=== PATIENT | male | born 1965 | race Caucasian/White ===

== ENCOUNTER 2018-06-20 10:09 | Outpatient (RCR) ==
--- NOTE | 2018-06-20 15:50 | RS.OPPTEV2 ---
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 Reports he has longstanding residual effects from cervical spine surgery in 07/2008. Prior Level of Function.....Patient was independent with: ADL's, Self Care, Caregiving, Ambulation/Mobility, Community Integration/Access Functional Limitations: Sleep, Reaching, Pushing, Pulling, Lifting, Carrying, Sitting, Standing, Bending, Squatting, Ambulation, Community Access/Integration Current Subjective/complaints:: pt reports that his LBP is getting worse. Reports that the doctor wanted to try therapy prior to looking at surgery. States that he has constant pain in low back as well as cervical spine. Treatment Side (optional): N/A *Precautions: n/a Medical History Medical History: Hypertension, Arthritis Medical History Comments:: chronic headache, generalized anxiety disorder, PTSD, Surgical History: Cervical Spine, Cholecystectomy Smoking Status: Former smoker Diagnostic Testing/Imaging:: MRI 04/2018: Lumbar spine: moderate spinal canal narrowing due to small central post disc protrusion and deg change. neural foraminal narrowing Mod at L4/L5, mild to moderate narrowing at L4/L5 on the R, annular tear of L4/L5 disc and decreased lumbar curvature. Hx Home Medications: albuteral, cetirizine hcl, cholecalciferol, cyanocobalamin , fish oil, fluticasone, hydrocodone, ibuprofen, pantoprazole, pregabalin, sildenafil, tiotropium, topiramate, venlasine hcl, lisopril, azithromycin, atorvastatin Patient's Goals: decreased pain Pain Assessment - Pain Description Pain Location: lumbar spine Pain Description: Burning, Sharp, Aching Pain Description: pt reports pain radiates into LLE from buttock to foot. Current Pain Intensity: 6 Worst Pain Intensity: 10 Functional Outcome Measure Oswestry LBP: 39 (78%) - G Codes & Severity Modifier G Codes & Modifier: mobility current CL. mobility goal Ck Source of G Code score: oswestry LBP scale Observation - Observation Inspection: pt with significant tightness BLE hamstring/piriformis. pt presents with leg length discrepancy R longer than L LE. Posture: Forward Head, Rounded Shoulders, Decreased Lumbar Lordosis Handedness: Right Gait - Gait Pattern General Gait Pattern Observation: Ataxic Gait Gait Comments: pt demonstrates with slight ataxic gait. Gait is limited due to decreased sensation BLE as well as proprioception BLE. pt amb with increased lat sway as well as flexed posture, de General Range of Motion: BUE WFL's. BLE WFL's. pt with limited cervical ROM due to previous inujury. Muscle Strength: BUE grossly 4/5. RLE grossly 4/5. LLE hip flex 4-/5, knee flex/ext 4-/5, ankle DF 4/5, PF 4-/5 - ROM Lumbar Flexion: Hand reach to Mid-Thighs Sidebending to Left: Reach to Mid-thigh Sidebending to Right: Reach to Mid-thigh Lumbar Spine ROM Limitations: Soft Tissue Tightness, Muscle Weakness, Muscle Tone - Strength Trunk Extension: 4- Good- Trunk Flexion: 3- Fair- Trunk Lateral Flexion: 3- Fair- Comments: pt with significantly limited lumbar ROM due to pain and muscle guarding - Special Tests IRENE Test: Positive Left, Positive Right SLR Test: Positive Left, Positive Right Seated Dural Stretch Test: Positive Left, Positive Right Palpation Palpation Findings: Tenderness, Trigger Point, Muscle Guarding Comments:: pt demonstrates tenderness, muscle guarding in lumbar paraspinals as well as trigger points noted in L lower lumbar/SI area. Sensation - Sensation Right Upper Extremity: Impaired (n/t and burning since cervical surgery) Left Upper Extremity: Impaired (n/t and burning since cervical surgery) Right Lower Extremity: Impaired (n/t RLE) Left Lower Extremity: Impaired (n/t LLE as well as paresthesia and hyperreflexia ) Balance - Sitting Balance Static Sitting Balance: Good Dynamic Sitting Balance: Good - Standing Balance Static Standing Balance: Good Dynamic Standing Balance: Good - Comments Balance Assessment Comments: balance impaired due to decreased proprioception and decreased sensation B feet - Treatment Modality: Electrical Stim Unattended Parameters/Method Applied: IFC x 20 mins at 22 Treatment Area: lumbar spine Patient Position: Sitting - Heat/Cryotherapy Treatment: Hot Pack Comments:: lumbar area Interventions - Exercise/Activities/Manual Therapy Exercises/Activities: pt received gentle hamstring stretching, piriformis stretching, lower trunk rotation stretch, as well as isometric hip add. Manual Therapy: n/a HOME EXERCISE PROGRAM: pt given written HEP including pelvic tilt, lower trunk rotation, knee to chest, hamstring stretch with partner, piriformis stretch, isometric hip add. - Charges Timed Code Treatment Minutes: 48 Total Treatment Time: 62 Procedures billed for this date of service:: eval med, estim unattended, hot pack EVALUATION COMPLEXITY LEVEL EVALUATION COMPLEXITY LEVEL: HISTORY: Medium (HTN, OA, ), EXAM OF BODY SYSTEMS: Medium (decreased strength, pain, ROM, radicular pain), CLINICAL PRESENTATION: Medium (evolving), CLINICAL DECISION MAKING: Medium Assessment Assessment: pt presents with LBP with radicular pain into LLE. pt with decreased sensation as well as hyperreflexia LLE which causes gait abnormality. pt with significant muscle tightness and muscle guarding. Patient Education: Activity Modification, Education of Plan of Care Rehab Potential: Good Short Term Goals Goal #1: pt independent with initial HEP Goal to be met by: 07/11/18 Goal #2: pt report pain 6/10 with activity Goal to be met by: 07/11/18 Goal #3: pt with improved flexibility BLE hamstrings and piriformis Goal to be met by: 07/11/18 Goal #4: Improve BLE strength 4/5 Goal to be met by: 07/11/18 Retirement Goals Goal #1: pt report radicular pain is no longer constant. Goal to be met by: 08/01/18 Goal #2: pt able to perform normal daily activities with less pain Goal to be met by: 08/01/18 Goal #3: hamstring and piriformis muscle flexibility WFL's Goal to be met by: 08/01/18 Goal #4: Leg length discrepancy decreased to equal BLE. Goal to be met by: 08/01/18 Plan - Treatment to be Provided Procedures: Therapeutic Exercises, Therapeutic Activity, Gait Training, Manual Therapy, Massage, Patient Education Modalities: Electrical Stimulation, Ultrasound/Phonophoresis, Class IV Laser, Hot Packs - Treatment Plan Frequency: 2-3x a week Duration: 6 weeks Dates of Retirement Goals: 08/01/18 Expiration date of current Insurance Approval:: 08/01/18 - Treatment Code (1) Lumbar back pain with radiculopathy affecting left lower extremity Code(s): M54.17 - RADICULOPATHY, LUMBOSACRAL REGION (2) Muscle tightness Code(s): M62.89 - OTHER SPECIFIED DISORDERS OF MUSCLE (3) Gait abnormality Code(s): R26.9 - UNSPECIFIED ABNORMALITIES OF GAIT AND MOBILITY (4) Muscle weakness Code(s): M62.81 - MUSCLE WEAKNESS (GENERALIZED)
== END 2018-06-20 23:59 | disposition short-term general hospital (02) ==
PROVIDERS: ATTEND Neurological Surgery
DX: M54.5 Low back pain (principal); M54.16 Radiculopathy, lumbar region

== ENCOUNTER 2018-07-11 13:00 | Outpatient (RCR) ==
--- NOTE | 2018-06-25 16:07 | RS.OPPTDN ---
Subjective Date of Note: 06/25/18 Visit #: 2 Number of visits approved by Insurance: 12 + eval Date of Evaluation: 06/20/18 P[place] Source[place] Treatment Diagnosis: Low back pain with radiculopathy Current Subjective/complaints:: pt reports he has been doing some gentle stretches at home with his 's help. States he feels like it is a little more loose. *Precautions: n/a Pain Assessment - Pain Description Pain Location: lumbar/sacral pain Pain Description: Sharp, Aching Current Pain Intensity: 5/10 Worst Pain Intensity: 7/10 - Treatment Modality: Ultrasound Parameters/Method Applied: 1.5w/cm2 x 7 mins Treatment Area: L lumbosacral area Patient Position: Left Sidelying - Heat/Cryotherapy Treatment: Hot Pack (prior to treatment), Cryotherapy (after treatment) Interventions - Exercise/Activities/Manual Therapy Exercises/Activities: pt received gentle hamstring stretches, knee to chest and piriformis stretching, isometric hip add x 5 reps, pelvic tilts x 5, HS with pelvis stable, muscle energy technique with RLE ext and LLE flex. After muscle energy technique leg lengths very close to equal. pt unable to tolerate increased ex. Total minutes of Exercise: 28 Manual Therapy: n/a HOME EXERCISE PROGRAM: pt given written HEP including pelvic tilt, lower trunk rotation, knee to chest, hamstring stretch with partner, piriformis stretch, isometric hip add. - Charges Timed Code Treatment Minutes: 41 Total Treatment Time: 60 Procedures billed for this date of service:: ex 2, ultrasound, CP Assessment: pt continues to be significantly limited due to pain and muscle tightness. pt with pain in lumbosacral area L worse than R. Patient Education: Home Exercise Program, Education of Plan of Care Patient demonstrates compliance with HEP?: Yes Short Term Goals Goal #1: pt independent with initial HEP Goal to be met by: 07/11/18 Progress towards Goal:: Progressing Goal #2: pt report pain 6/10 with activity Goal to be met by: 07/11/18 Progress towards Goal:: Progressing Comments:: pain 5/10 at rest increased to 6-7/10 after ex Goal #3: pt with improved flexibility BLE hamstrings and piriformis Goal to be met by: 07/11/18 Progress towards Goal:: Progressing Goal #4: Improve BLE strength 4/5 Goal to be met by: 07/11/18 Half-Way Goals Goal #1: pt report radicular pain no longer constant Goal to be met by: 08/01/18 Goal #2: pt able to perform normal daily activities with less pain Goal to be met by: 08/01/18 Goal #3: hamstring and piriformis muscle flexibility WFL's Goal to be met by: 08/01/18 Plan Dates of Half-Way Goals: 08/01/18 Expiration date of current Insurance Approval:: 08/01/18 PLAN: continue with stretching, strengthening and modalities to decrease pain as well as improve functional mobility.
--- NOTE | 2018-06-28 08:30 | RS.OPPTDN ---
Subjective Date of Note: 06/27/18 Visit #: 3 Number of visits approved by Insurance: 12 + eval Date of Evaluation: 06/20/18 P[place] Source[place] Treatment Diagnosis: Low back pain with radiculopathy Current Subjective/complaints:: pt states he is hurting more today, feels it is due to rainy weather. States he has been doing ex at home. *Precautions: n/a Pain Assessment - Pain Description Pain Location: low back pain Pain Description: Sharp, Aching Current Pain Intensity: 6 Worst Pain Intensity: 8 - Treatment Modality: Electrical Stim Unattended Parameters/Method Applied: high volt x 20 mins with 4 leads Treatment Area: lumbar area Patient Position: Left Sidelying - Heat/Cryotherapy Treatment: Hot Pack (prior to treatment x 15 mins), Cryotherapy (with estim after treatment) Interventions - Exercise/Activities/Manual Therapy Exercises/Activities: pt received hamstring and piriformis stretching, pelvic tilts x 5, knee to chest, muscle energy technique with RLE in ext, LLE flex. pt unable to tolerate increased ex due to pain Total minutes of Exercise: 19 Manual Therapy: n/a HOME EXERCISE PROGRAM: pt given written HEP including pelvic tilt, lower trunk rotation, knee to chest, hamstring stretch with partner, piriformis stretch, isometric hip add. - Charges Timed Code Treatment Minutes: 37 Total Treatment Time: 51 Procedures billed for this date of service:: ex, estim unattended, CP Assessment: pt with increased pain this visit. pt with decreased L hamstring tightness this visit. Feel pt may benefit from trying lumbar traction on next visit. Patient Education: Home Exercise Program, Education of Plan of Care Patient demonstrates compliance with HEP?: Yes Short Term Goals Goal #1: pt independent with initial HEP Goal to be met by: 07/11/18 Progress towards Goal:: Progressing Goal #2: pt report pain 6/10 with activity Goal to be met by: 07/11/18 Progress towards Goal:: Progressing Goal #3: pt with improved flexibility BLE hamstrings and piriformis Goal to be met by: 07/11/18 Progress towards Goal:: Progressing Goal #4: Improve BLE strength 4/5 Goal to be met by: 07/11/18 Progress towards Goal:: Progressing Diver Tender Goals Goal #1: pt report radicular pain no longer constant Goal to be met by: 08/01/18 Goal #2: pt able to perform normal daily activities with less pain Goal to be met by: 08/01/18 Goal #3: hamstring and piriformis muscle flexibility WFL's Goal to be met by: 08/01/18 Plan Dates of Diver Tender Goals: 08/01/18 Expiration date of current Insurance Approval:: 08/01/18 PLAN: Try lumbar traction next visit. continue with stretching and strengthening.
--- NOTE | 2018-07-02 14:54 | RS.OPPTDN ---
Subjective Date of Note: 07/02/18 Visit #: 4 Number of visits approved by Insurance: 12 + eval Date of Evaluation: 06/20/18 P[place] Source[place] Treatment Diagnosis: Low back pain with radiculopathy Current Subjective/complaints:: pt states he is feeling a little better today. States he has been trying to walk a little more. *Precautions: n/a Pain Assessment - Pain Description Pain Location: low back pain Pain Description: Radiating, Sharp, Aching Current Pain Intensity: 3 Worst Pain Intensity: 7 - Treatment Modality: Electrical Stim Unattended Parameters/Method Applied: IFC at 24 for 20 mins Treatment Area: lumbosacral area Patient Position: Left Sidelying - Heat/Cryotherapy Treatment: Hot Pack (lumbar x 15 mins prior to treatment), Cryotherapy Comments:: lumbosacral area with estim after traction - Traction Treatment Method: Mechanical Patient Position: Supine Amount of Force Applied: 100lb Hold Time: 35 sec Rest Time: 5 sec Duration of treatment: 15 mins Traction Treatment Comment: pt states it felt good during treatment, after treatment felt some worse. Interventions - Exercise/Activities/Manual Therapy Exercises/Activities: pt did mechanical tx today and estim, unable to tolerate ex this visit. Manual Therapy: n/a HOME EXERCISE PROGRAM: pt given written HEP including pelvic tilt, lower trunk rotation, knee to chest, hamstring stretch with partner, piriformis stretch, isometric hip add. - Charges Timed Code Treatment Minutes: 10 mins Total Treatment Time: 45 mins Procedures billed for this date of service:: estim unattended, mechanical traction, cold pack Assessment: pt with reports of slightly decreased pain, pt continues to be limited due to pain, muscle tightness. Patient Education: Home Exercise Program, Education of Plan of Care Patient demonstrates compliance with HEP?: Yes Short Term Goals Goal #1: pt independent with initial HEP Goal to be met by: 07/11/18 Progress towards Goal:: Progressing Goal #2: pt report pain 6/10 with activity Goal to be met by: 07/11/18 Progress towards Goal:: Progressing Goal #3: pt with improved flexibility BLE hamstrings and piriformis Goal to be met by: 07/11/18 Progress towards Goal:: Progressing Goal #4: Improve BLE strength 4/5 Goal to be met by: 07/11/18 Progress towards Goal:: Progressing Outside Salesman Goals Goal #1: pt report radicular pain no longer constant Goal to be met by: 08/01/18 Goal #2: pt able to perform normal daily activities with less pain Goal to be met by: 08/01/18 Goal #3: hamstring and piriformis muscle flexibility WFL's Goal to be met by: 08/01/18 Plan Dates of Custodial Goals: 08/01/18 Expiration date of current Insurance Approval:: 08/01/18 PLAN: plan to continue mechanical traction as well as stretching and strengthening ex and modalities to decrease pain.
--- NOTE | 2018-07-10 08:30 | RS.OPPTDN ---
Subjective Date of Note: 07/09/18 Visit #: 1 Number of visits approved by Insurance: 5 Date of Evaluation: 06/20/18 P[place] Treatment Diagnosis: Low back pain with radiculopathy Current Subjective/complaints:: pt states that he feels like the traction increased his pain on last visit. He reports he has an appt to see pain management on 07/22/18. *Precautions: n/a Pain Assessment - Pain Description Pain Location: low back pain radiating into L hip Current Pain Intensity: 6 - Treatment Modality: Electrical Stim Unattended Parameters/Method Applied: IFC x 20 mins at 22 Treatment Area: lumbar area Patient Position: Left Sidelying - Heat/Cryotherapy Treatment: Hot Pack (prior to treatment), Cryotherapy (with estim) Interventions - Exercise/Activities/Manual Therapy Exercises/Activities: pt performed pelvic tilt, isometric hip add, resisted hip flex, resisted hip abd x 5-10. Gentle hamstring stretches, piriformis stretch, knee to chest, pt requires multiple rest periods between ex. Manual Therapy: n/a HOME EXERCISE PROGRAM: pt given written HEP including pelvic tilt, lower trunk rotation, knee to chest, hamstring stretch with partner, piriformis stretch, isometric hip add. - Charges Timed Code Treatment Minutes: 46 Total Treatment Time: 64 Procedures billed for this date of service:: ex 2, estim, hot pack Assessment: pt continues with pain radiating into L hip. pt with some improvement with flexibility on the RLE. Progress is limited due to pain. Patient Education: Home Exercise Program, Education of Plan of Care Patient demonstrates compliance with HEP?: Yes Short Term Goals Goal #1: pt independent with initial HEP Goal to be met by: 07/11/18 Progress towards Goal:: Progressing Goal #2: pt report pain 6/10 with activity Goal to be met by: 07/11/18 Progress towards Goal:: Progressing Goal #3: pt with improved flexibility BLE hamstrings and piriformis Goal to be met by: 07/11/18 Progress towards Goal:: Progressing Goal #4: Improve BLE strength 4/5 Goal to be met by: 07/11/18 Progress towards Goal:: Progressing Fpc Goals Goal #1: pt report radicular pain no longer constant Goal to be met by: 08/01/18 Goal #2: pt able to perform normal daily activities with less pain Goal to be met by: 08/01/18 Goal #3: hamstring and piriformis muscle flexibility WFL's Goal to be met by: 08/01/18 Plan Dates of Hourly Associate Goals: 08/01/18 Expiration date of current Insurance Approval:: 08/01/18 PLAN: If pt continues without much improvement plan to dc on next visit. pt to go to pain management on 07/22/18 may benefit from PT after treated by pain management and pain under control.
--- NOTE | 2018-07-11 15:13 | RS.OPPTDC ---
Date of Discharge: 07/11/18 Date of Evaluation: 06/20/18 Number of Visits: 6 Treatment Diagnosis: Low back pain with radiculopathy Current Level of Function: pt continues with LBP radiating into L hip. pt hamstring flexibilty has improved somewhat since eval. pt continues with tightness B piriformis. pt also continues with muscle guarding to lumbar/sacral area. pt leg lengths have improved to equal BLE. Current Complaints/Gains: pt reports he is trying to do HEP at home, limited due to pain. pt does not feel he has had much improvement with PT. He states he is going to pain management on 07/22/18 to begin injections and returns to neuro MD on 08/21/18. Agreement between PT and patient to dc PT this date and resume after undergoes treatment from pain management if needed. Pain Assessment - Pain Description Pain Location: lumbosacral pain Pain Description: Radiating, Sharp, Aching Current Pain Intensity: 5 Worst Pain Intensity: 8 Functional Outcome Measure - G Codes & Severity Modifier G Codes & Modifier: n/a Source of G Code score: n/a Observation - Observation Posture: Forward Head, Rounded Shoulders, Increased Thoracic Kyphosis, Decreased Lumbar Lordosis Handedness: Right Gait - Gait Pattern Gait Comments: pt continues to amb with increased lat sway, decreased step length, flexed posture. - Treatment Modality: Electrical Stim Unattended Parameters/Method Applied: IFC x 20 mins at 16 Treatment Area: lumbar/sacral area Patient Position: Left Sidelying - Heat/Cryotherapy Treatment: Hot Pack (prior to treatment), Cryotherapy (with estim) Interventions - Exercise/Activities/Manual Therapy Exercises/Activities: pt performed pelvic tilt, isometric hip add, resisted hip flex, resisted hip abd x 5 reps. Gentle hamstring stretches, knee to chest, unable to tolerate piriformis stretch this visit. Manual Therapy: n/a HOME EXERCISE PROGRAM: pt given written HEP including pelvic tilt, lower trunk rotation, knee to chest, hamstring stretch with partner, piriformis stretch, isometric hip add. - Charges Timed Code Treatment Minutes: 35 Total Treatment Time: 61 Procedures billed for this date of service:: ex, estim unattended, cold pack Assessment Assessment: pt has made progress with hamstring flexibility, continues with pain in lumbosacral spine radiating into L hip. pt did meet STG 1, 2, 4. Progress limited due to pain. Patient Education: Home Exercise Program, Education of Plan of Care Rehab Potential: Good Short Term Goals Goal #1: pt independent with initial HEP Goal to be met by: 07/11/18 Progress towards Goal:: Met Goal #2: pt report pain /10 with activity Goal to be met by: 07/11/18 Progress towards Goal:: Met Comments:: 09/27 Goal #3: pt with improved flexibility BLE hamstrings and piriformis Goal to be met by: 07/11/18 Progress towards Goal:: Partially Met Comments:: hamstings improved continues with piriformis tightness Goal #4: Improve BLE strength /5 Goal to be met by: 07/11/18 Progress towards Goal:: Met [facility] Goals Goal #1: pt report radicular pain no longer constant Goal to be met by: 08/01/18 Progress towards goal: No Change Goal #2: pt able to perform normal daily activities with less pain Goal to be met by: 08/01/18 Progress towards goal: No Change Goal #3: hamstring and piriformis muscle flexibility WFL's Goal to be met by: 08/01/18 Progress towards goal: Progressing Plan Comments: Feel pt has reached a plateau with progress at this time. Feel pt may benefit from skilled PT at a later time after pain management if pain becomes more controlled.
== END 2018-07-18 23:59 ==
PROVIDERS: ATTEND Neurological Surgery
DX: M54.5 Low back pain (principal); M54.16 Radiculopathy, lumbar region